=== PATIENT | male | born 1990 | race Caucasian/White ===

== ENCOUNTER 2023-08-27 12:54 | Emergency (ER) | payer OTHER ==
[~2023-08-27] VITALS: Ht 190.5 cm; Wt 96.6 kg
[2023-08-27 15:00] VITALS: BP 169/92; TEMP 97.9; O2SAT 98
[2023-08-27] MEDS ORDERED: LIDOCAINE 1% MDV 20ML VIAL SC ONE (16:45)
[2023-08-27] MEDS ORDERED: NEOSPORIN OINT 0.9 GM PKT TOP ONE (16:45)
== END 2023-08-27 17:14 | disposition home or self-care (01) ==
LOC: M ED 12:54
DX: S61.216A Laceration without foreign body of right little finger without damage to nail, initial encounter (principal); Y92.9 Unspecified place or not applicable; Y93.9 Activity, unspecified; Y99.9 Unspecified external cause status; X58.XXXA Exposure to other specified factors, initial encounter